=== PATIENT | male | born 1985 | race American Indian/Alaskan Native ===

== ENCOUNTER 2016-12-26 16:36 | Emergency (ER) | payer MEDICARE, OTHER ==
[2016-12-26 16:48] VITALS: BP 137/101
== END 2016-12-26 20:00 | disposition left against medical advice (07) ==
LOC: ED 16:36
DX: F41.9 Anxiety disorder, unspecified (principal); Z53.21 Procedure and treatment not carried out due to patient leaving prior to being seen by health care provider

== ENCOUNTER 2019-04-22 14:41 | Emergency (ER) | payer MEDICARE ==
--- NOTE | 2019-04-22 15:11 | Emergency Department Report ---
Blank Doc - Documentation Documentation: 33 y o male presents to ED cc of insect bite to his upper chest x 2-3 days ago, states pus this morning from bite. itching and burning to area, red denies fever, ACC eval
[2019-04-22 15:12] VITALS: BP 112/74
--- NOTE | 2019-04-22 16:01 | Emergency Department Report ---
ED Rash HPI - HPI Chief Complaint: Skin/Abscess/Foreign Body Stated Complaint: (L) SIDE SPIDER BITE/CHEST Time Seen by Provider: 04/22/19 15:08 Duration: 2 Days Location: Chest Suspected Cause: Insect Rash Symptoms: Yes Blistering, No Itching, No Facial Swelling, No Tongue/Oral Swelling, No Breathing Difficulties, No Choking Sensation, No Wheezing/Dyspnea, No Peeling, No Fever, No Lightheaded, No Malaise, No Myalgias Severity: mild Other History: Mr. Dumas is a very pleasant healthy 33-year-old gentleman who was bit by a spider on his left chest. He actually saw the spider and killed it.He has abscess on his left chest wall. Mild drainage. Surrounding redness. ED Review of Systems ROS: Stated complaint: (L) SIDE SPIDER BITE/CHEST Other details as noted in HPI Constitutional: denies: fever, malaise Skin: rash, lesions ED Past Medical Hx - Past Medical History Previous Medical History?: Yes Additional medical history: Albinism, anxiety, Boils, Skin infections - Surgical History Past Surgical History?: No - Social History Smoking Status: Never Smoker Substance Use Type: None - Medications Home Medications: Home Medications Medication Instructions Recorded Confirmed Last Taken Type Hydrocortisone 2.5% [Hytone 2.5% 1 applicatio TP BID #30 gm 05/07/15 Unknown Rx CREAM] HYDROcodone/APAP 5-325 [[place] 1 each PO Q6HR PRN #14 tablet 07/04/16 Unknown Rx 5/325] Sulfamethoxazole/Trimethoprim 1 each PO BID 7 Days #14 tablet 04/22/19 Unknown Rx [Bactrim DS TAB] cephALEXin [Keflex] 500 mg PO Q6HR 7 Days #28 capsule 04/22/19 Unknown Rx Rash Exam - Exam General: Vital signs noted. No distress. Alert and acting appropriately. HEENT: No Periorbital Edema, No Conjuctival Injection, No Chemosis, No Perioral Edema, No Tongue Edema, No Uvular Edema, No Compromised Airway, No Drooling Lungs: No Labored Respirations, No Retractions, No Use of Accessory Muscles Skin: No Other (flat small abscess with cluster of pustules 5 cm of surrounding erythema. Left chest) ED Course Vital Signs 04/22/19 15:09 Temperature 98.5 F Pulse Rate 103 H Respiratory 20 Rate Blood Pressure 112/74 O2 Sat by Pulse 98 Oximetry ED Medical Decision Making - Medical Decision Making Small abscess with surrounding cellulitis. I&D is not indicated due to small size, Bactrim, Keflex provided Critical care attestation.: If time is entered above; I have spent that time in minutes in the direct care of this critically ill patient, excluding procedure time. ED Disposition Clinical Impression: Abscess, Abscess of chest wall, Cellulitis of chest wall Disposition: [id number] TO HOME OR SELFCARE Is pt being admited?: No Does the pt Need Aspirin: No Condition: Stable Instructions: Abscess (ED), Cellulitis (ED) Prescriptions: Sulfamethoxazole/Trimethoprim [Bactrim DS TAB] 1 each PO BID 7 Days #14 tablet cephALEXin [Keflex] 500 mg PO Q6HR 7 Days #28 capsule
== END 2019-04-22 16:30 | disposition home or self-care (01) ==
LOC: ED 14:41
DX: S20.362A Insect bite (nonvenomous) of left front wall of thorax, initial encounter (principal); W57.XXXA Bitten or stung by nonvenomous insect and other nonvenomous arthropods, initial encounter; Y93.89 Activity, other specified; Y92.098 Other place in other non-institutional residence as the place of occurrence of the external cause; Y99.8 Other external cause status
CPT/HCPCS: 99282

== ENCOUNTER 2019-10-08 11:28 | Emergency (ER) | payer MEDICARE ==
[2019-10-08 13:08] VITALS: BP 116/78
[2019-10-08] MEDS ORDERED: FAMOTIDINE 20 MG TAB ONE (13:14)
[2019-10-08] MEDS ORDERED: predniSONE 20 MG TAB ONE (13:14)
[2019-10-08] MEDS ORDERED: diphenhydrAMINE 25 MG CAP PO ONE ×2 (13:14→13:23)
[2019-10-08] MEDS ORDERED: predniSONE 20 MG TAB PO ONE (13:23)
[2019-10-08] MEDS ORDERED: FAMOTIDINE 20 MG TAB PO ONE (13:23)
--- NOTE | 2019-10-08 14:18 | Emergency Department Report ---
ED Rash HPI - HPI Chief Complaint: Skin Rash Stated Complaint: POSS ALLERGIC REACTION/HIVES Time Seen by Provider: 10/08/19 13:13 Duration: 3 Days Location: Head, Back, Abdomen, Upper Extremities, Lower Extremities Suspected Cause: Unknown Rash Symptoms: Yes Itching, No Facial Swelling, No Tongue/Oral Swelling, No Breathing Difficulties, No Choking Sensation, No Wheezing/Dyspnea, No Peeling, No Blistering, No Fever, No Lightheaded, No Malaise, No Myalgias Other History: This is a 33 y.o. M. that presents to the ER with generalized pruritic rash for 3 days. Patient states he just moved into his rental home with a room mate and been sick every since. Reports increasing spread of pruritic rash. States rash initially started on abdomen and spread all other. Denies difficulty swallowing, swelling, drainage, redness, or fever. ED Review of Systems ROS: Stated complaint: POSS ALLERGIC REACTION/HIVES Other details as noted in HPI Constitutional: denies: chills, fever Respiratory: denies: cough, shortness of breath, wheezing Cardiovascular: denies: chest pain, palpitations Gastrointestinal: denies: abdominal pain, nausea, diarrhea Skin: rash (generalized), pruritus. denies: lesions Neurological: denies: headache, weakness, paresthesias Psychiatric: denies: anxiety, depression ED Past Medical Hx - Past Medical History Previous Medical History?: Yes Additional medical history: Albinism, anxiety, Boils, Skin infections - Surgical History Past Surgical History?: No - Social History Smoking Status: Never Smoker Substance Use Type: None - Medications Home Medications: Home Medications Medication Instructions Recorded Confirmed Last Taken Type Hydrocortisone 2.5% [Hytone 2.5% 1 applicatio TP BID #30 gm 05/07/15 Unknown Rx CREAM] HYDROcodone/APAP 5-325 [[place] 1 each PO Q6HR PRN #14 tablet 07/04/16 Unknown Rx 5/325] Sulfamethoxazole/Trimethoprim 1 each PO BID 7 Days #14 tablet 04/22/19 Unknown Rx [Bactrim DS TAB] cephALEXin [Keflex] 500 mg PO Q6HR 7 Days #28 capsule 04/22/19 Unknown Rx Clindamycin [Clindamycin CAP] 300 mg PO Q8H #21 cap 10/08/19 Unknown Rx hydrOXYzine PAMOATE [Vistaril] 25 mg PO Q6HR PRN #20 capsule 10/08/19 Unknown Rx methylPREDNISolone [Medrol 4MG 4 mg PO DAILY #1 tab.ds.pk 10/08/19 Unknown Rx DOSEPAK (21 tabs)] Rash Exam - Exam General: Vital signs noted. No distress. Alert and acting appropriately. HEENT: No Periorbital Edema, No Conjuctival Injection, No Chemosis, No Perioral Edema, No Tongue Edema, No Uvular Edema, No Compromised Airway, No Drooling Lungs: Yes Good Air Exchange (Normal Breath Sounds), No Wheezes, No Ronchi, No Stridor, No Cough, No Labored Respirations, No Retractions, No Use of Accessory Muscles, No Other Abnormal Lung Sounds Heart: Yes Regular, No Murmur Skin: Yes Erythema, Yes Other (erythematous papules in liner patterns to anterior and posterior trunk, face, BUE, and BLE. large erythamatous and tenderness area to left lateral forearm), No Urticarial Rash, No Maculopapular Rash, No Morbilliform rash, No Bulla(e), No Excoriations, No Weeping, No Tenderness, No Edema, No Encrustations ED Course Vital Signs 10/08/19 13:06 Temperature 98.7 F Pulse Rate 94 H Respiratory 20 Rate Blood Pressure 116/78 O2 Sat by Pulse 98 Oximetry ED Medical Decision Making - Medical Decision Making This is a 33-year-old female that presents to ER for pruritus and generalized rash. Patient is stable was examined by me. Vitals are stable and patient in no acute distress. So signs of acute distress. Rash is erythematous papules in liner patterns to anterior and posterior trunk, face, BUE, and BLE. Rash appear to be bed bugs. However, there is a large erythamatous and tenderness area to left lateral forearm that appear to be secondary cellulitis infection. Start clindamycin, vistaril, and medrol dose pack. At time of discharge, the patient does not seem toxic or ill in appearance. Patient agrees to discharge treatment plan of care. No further questions noted by the patient. Critical care attestation.: If time is entered above; I have spent that time in minutes in the direct care of this critically ill patient, excluding procedure time. ED Disposition Clinical Impression: Pruritic rash Bed bug bite Qualifiers: Encounter type: initial encounter Qualified Code(s): W57.XXXA - Bitten or stung by nonvenomous insect and other nonvenomous arthropods, initial encounter Cellulitis Qualifiers: Site of cellulitis: extremity Site of cellulitis of extremity: upper extremity Laterality: left Qualified Code(s): L03.114 - Cellulitis of left upper limb Disposition: - TO HOME OR SELFCARE Is pt being admited?: No Condition: Stable Instructions: Insect Bite or Sting (ED), Cellulitis (ED) Prescriptions: Clindamycin [Clindamycin CAP] 300 mg PO Q8H #21 cap methylPREDNISolone [Medrol 4MG DOSEPAK (21 tabs)] 4 mg PO DAILY #1 tab.ds.pk hydrOXYzine PAMOATE [Vistaril] 25 mg PO Q6HR PRN #20 capsule PRN Reason: Itching Referrals: [facility] [Outside] - 3-5 Days [facility] [Outside] - 3-5 Days [facility] [Outside] - 3-5 Days Forms: Work/School Release Form(ED) Time of Disposition: 14:31
== END 2019-10-08 14:36 | disposition home or self-care (01) ==
LOC: ED 11:28
DX: L03.114 Cellulitis of left upper limb (principal); E70.30 Albinism, unspecified; F41.9 Anxiety disorder, unspecified; Z79.899 Other long term (current) drug therapy; W57.XXXA Bitten or stung by nonvenomous insect and other nonvenomous arthropods, initial encounter; Y93.89 Activity, other specified; Y92.89 Other specified places as the place of occurrence of the external cause; Y99.8 Other external cause status
CPT/HCPCS: 99282; J7512